=== PATIENT | female | born 1960 | race Hispanic/Latino ===

== ENCOUNTER 2019-06-11 18:38 | Emergency (ER) | payer BC ==
[2019-06-11 19:07] VITALS: BP 237/117
--- NOTE | 2019-06-11 19:10 | Event Note ---
ED Screening Note Date of service: 06/11/19 Time: 19:03 ED Screening Note: This is a 58 y.o. F. that presents to the ER with painful mass to left breast x 1 year. Patient states breast is dimpled on lateral side. Current smoker This initial assessment/diagnostic orders/clinical plan/treatment(s) is/are subject to change based on patients health status, clinical progression and re- assessment by fellow clinical providers in the ED. Further treatment and workup at subsequent clinical providers discretion. Patient/guardian urged not to elope from the ED as their condition may be serious if not clinically assessed and managed. Initial orders include:
== END 2019-06-11 22:40 | disposition left against medical advice (07) ==
LOC: ED 18:38
DX: N63.20 Unspecified lump in the left breast, unspecified quadrant (principal); Z53.21 Procedure and treatment not carried out due to patient leaving prior to being seen by health care provider